=== PATIENT | male | born 1960 | race Two or more races ===

== ENCOUNTER 2025-04-02 01:03 | Emergency (ER) | payer OTHER ==
[~2025-04-02] VITALS: Ht 182.9 cm; Wt 127.3 kg
[2025-04-02 01:03] VITALS: BP 0/0; PULSE 0; RESP 0; TEMP 95.1; O2SAT 0
[2025-04-02 01:10] VITALS: RESP 0; O2SAT 0
--- NOTE | 2025-04-02 01:20 | ED.PDOC ---
CPR-HPI HPI Comments 64-year-old male who came to ER via EMS in cardiac arrest. By EMS, initial call of shortness a breath, patient was given albuterol nebulization and was placed on CPAP, however patient became unresponsive and apneic. CPR initiated. Patient intubated, chest compressions started, IO left leg inserted, was given 2 rounds of epinephrine prior to arrival to the ER. Patient pulseless upon arrival. Chief Complaint: CPR Time Seen by MD: 01:19 Reviewed Notes: Environmental Health Technologist Notes Allergies: Coded Allergies: NO KNOWN ALLERGIES (Unverified , 04/02/25) Information Source: Emergency Med Personnel Mode of Arrival: EMS Timing: Minutes Duration: Total time prior hopital: (15 minutes) Onset: With exertion Available Hx: Prior Cardiac Disease Inital rhythm: Undetermined Treatment: CPR, Intubation, Epinephrine Response: No response Associated signs and symptoms: Dyspnea Past Medical History PAST MEDICAL HISTORY: PA (Three months ago) Surgical History: Unobtainable Family History Family History: Unobtainable Social History Smoker: Unobtainable Alcohol: Unobtainable Drugs: Unobtainable Lives In: Home Unable to Obtain due to: Medical Urgency, Intubated Physical Exam General Appearance: Other (CPR in progress) HEENT: Other (Blunt pupils) Neck: Normal Inspection Respiratory: Other (Patient intubated and being bagged) Cardiovascular: Other (CPR in progress) Breast Exam: Deferred Gastrointestinal: No Organomegaly Genitalia: Deferred Pelvic: Deferred Rectal: Deferred Extremities: No pedal edema Neurologic: Other (Patient unresponsive) Cerebellar Function: NOT DONE Reflexes: NOT DONE Skin: Mottled Lymphatic: NOT DONE Was a procedure done? Was a procedure done?: No Differential Dx CPR Differential Diagnosis: Cardiopulmonary arrest, Respiratory Failure X-Ray, Labs, Meds, VS Vital Signs Date Time Temp Pulse Resp B/P (MAP) Pulse Ox O2 Delivery O2 Flow Rate FiO2 04/02/25 01:39 0 0 Ambu-Bag 0 04/02/25 01:03 95.1 0 0 0/0 0 95.1 04/02/25 01:03 95.1 0 0 0/0 (0) 0 95.1 Time of 1ST Reevaluation: 01:00 Reevaluation 1ST: Unchanged Patient Education/Counseling: Pt Unresponsive Family Education/Counseling: No Family Present SEPSIS Sepsis Screen Vital Signs Date Time Temp Pulse Resp B/P (MAP) Pulse Ox O2 Delivery O2 Flow Rate FiO2 04/02/25 01:39 0 0 Ambu-Bag 0 04/02/25 01:03 95.1 0 0 0/0 0 95.1 04/02/25 01:03 95.1 0 0 0/0 (0) 0 95.1 Departure 1 Departure Time of Disposition: 02:25 (Patient presented in cardiac arrest. ACLS per protocol splint unfortunately patient can not be arrived. Ultimately patient ) Impression: Primary Impression: Cardiac arrest Disposition: 20 Condition: Other () Critical Care Note Critical Care Time?: No Heart Score Heart Score: Heart Score Response (Comments) Value History N/A 0 EKG N/A 0 Age N/A 0 Risk Factors N/A 0 Troponin N/A 0 Total 0 Stability Stability form required: No I personally scribed for JOSÉ MIGUEL SCOTT MD ([email or web address]) on 04/02/25 at 01:20. Electronically submitted by Byron Guillen ([email or web address]). JOSÉ MIGUEL SCOTT MD Apr 02, 2025 01:20
--- NOTE | 2025-04-02 01:39 | RESUS ---
CODE BLUE ASSESSSMENT History of Events History of Events: Pt BIBA with CPR in progress. Per EMS, pt called 911 due to shortness of breath. During transport, pt was given breathing tx and placed on CPAP. Pt then went unresponsive and apneic. CPR initiated by EMS en route. IO established to L distal tibia, intubated with ETT 7.0 at 25cm at the lip. Pt received Epi x2 rounds prior to arrival to ER. Field BS 258. Initial Information Date: Apr 02, 2025 Time: 00:56 Location of Arrest: In Field Arrest Witnessed: Yes CPR started initial time: 00:44 CPR started by whom: EMS Last seen well: 0040 Pre-Hospital Care: ACLS Type of arrest: Cardiac, Respiratory, Adult, Witnessed Spontaneous Respirations: No Pulse Present: No Monitoring: ECG, Pulse Oximetry, Telemetry Crash Cart Opened and Supplies: Yes Airway Ventilation Breathing at Onset: Assisted Oxygen Delivery Method: Ambu-Bag Artificial Ventilation: Bag/Mask Intubation Time: 00:50 Intubation Size: 7.0 cuffed Intubated by: Unemployment Claims Adjudicator Intubated orally: Yes Intubated Nasaly: No Tube secured at: 25 (cm at lip) Comments: Pt was intubated by manual lathe machinist prior to arrival Circulation Circulation #1: Time: 00:56 Pulse Rate (adult): 0 Blood Pressure Systolic: 0 Blood Pressure Diastolic: 0 Temperature (Fahrenheit): 95.1 Circulation Comment: No palpable pulse Circulation #2: Time: 00:58 Pulse Rate (adult): 0 Blood Pressure Systolic: 0 Blood Pressure Diastolic: 0 Circulation Comment: PEA Circulation #3: Time: 01:00 Pulse Rate (adult): 0 Blood Pressure Systolic: 0 Blood Pressure Diastolic: 0 Circulation Comment: Asystole Circulation #4: Time: 01:02 Pulse Rate (adult): 0 Blood Pressure Systolic: 0 Blood Pressure Diastolic: 0 Circulation Comment: Asystole Circulation #5: Time: 01:04 Pulse Rate (adult): 0 Blood Pressure Systolic: 0 Blood Pressure Diastolic: 0 Circulation Comment: PEA Circulation #6: Time: 01:06 Pulse Rate (adult): 0 Blood Pressure Systolic: 0 Blood Pressure Diastolic: 0 Circulation Comment: PEA Circulation #7: Time: 01:08 Pulse Rate (adult): 0 Blood Pressure Systolic: 0 Blood Pressure Diastolic: 0 Circulation Comment: PEA; TOD Procedure - IV Procedure - IV : IV start time: 01:03 IV Side: Right IV Location: Antecubital IV Catheter Type: Saline Lock IV Placed: In Hospital IV Placed by Radha Berger RN IV Gauge: 20 IV Line Care: Saline Flush Medications & Response Medications and Responses #1: Medication Time: 00:59 ADULT Medications Given ADULT: Epinephrine 1 mg Route of Administration: IO Heart Rate: 0 EKG Rhythm: Asystole Blood Pressure Systolic: 0 Blood Pressure Diastolic: 0 Respiratory Rate: 0 Medications and Responses #2: Medication Time: 01:01 ADULT Medications Given ADULT: Sodium Bacarbinate 50 meq, Calcium Chloride 10 mL Route of Administration: IO Heart Rate: 0 EKG Rhythm: Asystole Blood Pressure Systolic: 0 Blood Pressure Diastolic: 0 Respiratory Rate: 0 Medications and Responses #3: Medication Time: 01:02 ADULT Medications Given ADULT: Magnesium Sulfate 2 gm Route of Administration: IO Heart Rate: 0 EKG Rhythm: Asystole Blood Pressure Systolic: 0 Blood Pressure Diastolic: 0 Respiratory Rate: 0 Medications and Responses #4: Medication Time: 01:04 ADULT Medications Given ADULT: Epinephrine 1 mg Route of Administration: IV Heart Rate: 0 EKG Rhythm: PEA Blood Pressure Systolic: 0 Blood Pressure Diastolic: 0 Respiratory Rate: 0 Nurses Notes [place] Coma Scale Eye Opening: None (1) [place] Coma Scale Verbal: None (1) Bessy Coma Scale Motor: None (1) [place] Total: 3 Pupil Reaction: Sluggish Bedside Blood Glucose: 255 Time Code Ended Time Code Ended: 01:08 Post Arrest Status: Outcome of code: Unsuccessful Patient pronounced by: Dr Verdugo Time patient pronounced: 01:08 Code Team Present: Dr Verdugo - JIM MD; Emanuel Mojica RN - ER Charge; Milagro Lopez RN - Industrial Engineering Manager; Radha Berger RN; Teresa Georges RN; Bessie Odell, RT; Christiano S, ERT; Riley Hurtado, ERT; Chey Cabrera, ERT; Hua Berger, Milagro Humphreys Apr 02, 2025 01:39
== END 2025-04-02 01:12 ==
LOC: EDBD 01:03 → ER 01:06
DX: I46.9 Cardiac arrest, cause unspecified (principal); I25.2 Old myocardial infarction
CPT/HCPCS: 31500; 82947; 92950